=== PATIENT | female | born 1990 | race African-American/Black ===

== ENCOUNTER 2019-01-16 22:06 | Emergency (ER) | payer OTHER, SELFPAY ==
[2019-01-16 22:32] LABS: WBC Urine None Seen (0-5/HPF)
[2019-01-16 22:44] LABS: Bacteria Urine Occasional (0-1); Culture Indicated Urine Cult Not Indicated; RBC Urine 0-1/HPF (0-5/HPF); Squamous Epithelial Cell Urine 1-5 /HPF (0-5/HPF)
--- NOTE | 2019-01-16 22:47 | ED.ABDPAIN ---
HPI - Abdominal Pain General Stated Complaint: ABD PAIN, HX OF CYST Time Seen by Provider: 01/16/19 22:07 Source: patient Mode of arrival: ambulatory Limitations: no limitations History of Present Illness HPI narrative: 28-year-old female nonsmoker, otherwise healthy presents with a chief complaint of persistent lower pelvic pressure for many weeks if not months. She states it is worse when she moves and improves with rest. She denies any vaginal bleeding or discharge. She denies any dysuria, frequency or urgency. She denies fever or chills nor nausea, vomiting or diarrhea. Patient was seen and evaluated at the [facility] clinic and had an ultrasound yesterday, she was called today and told she has a left-sided ovarian cyst and her IUD is in appropriate placement. Patient called the nursing hotline to see if she can take anything for pain in after a brief conversation it was encouraged that she present to the emergency department MD complaint: abdominal pain Onset (ago): week(s) Pain Consistency: constant Location: LLQ Severity: mild Quality: aching Relieving factors: rest Exacerbating factors: movement Associated symptoms: denies other symptoms Related Data Previous Rx's Medication Instructions Recorded ketorolac 10 mg PO Q6H PRN #14 tab 01/16/19 Review of Systems Constitutional Denies chills, Denies fever(s), Denies lethargy and Denies weakness Eyes Denies change in vision, Denies eye discharge, Denies irritation and Denies loss of vision ENT Ears, Nose, Mouth, and Throat: Denies change in voice, Denies neck pain and Denies sore throat Cardiovascular Denies chest pain, Denies irregular heart rhythm, Denies lightheadedness, Denies palpitations, Denies dyspnea, Denies dyspnea on exertion and Denies orthopnea Respiratory Denies cough, Denies dyspnea, Denies dyspnea on exertion and Denies wheezing Gastrointestinal Gastrointestinal: Denies abdominal pain, Denies change in bowel habits, Denies diarrhea, Denies nausea and Denies vomiting Comments: Pelvic pain Genitourinary Denies hematuria, Denies flank pain, Denies urinary incontinence and Denies urinary urgency Musculoskeletal Denies neck pain Integumentary/Breasts Denies pruritus, Denies erythema, Denies rash and Denies wounds Neurologic Denies confusion, Denies loss of vision and Denies weakness Psychiatric Denies anxiety, Denies confusion, Denies depression, Denies homicidal ideation and Denies suicidal ideation Endocrine Denies palpitations Hematologic/Lymphatic Denies easy bruising Allergic/Immunologic Denies wheezing Exam Narrative Exam Narrative: GENERAL: 28-year-old female resting comfortably and in no apparent distress HEAD: Atraumatic. Normocephalic. No temporal or scalp tenderness. EYES: Pupils equal round and reactive. Extraocular motions intact. ENT: Nose without bleeding, purulent drainage or septal hematoma. NECK: Trachea midline. CARDIOVASCULAR: Regular rate and rhythm without murmurs, gallops, or rubs. RESPIRATORY: Clear to auscultation. Breath sounds equal bilaterally. No wheezes, rales, or rhonchi. GASTROINTESTINAL: Abdomen soft, non-tender, nondistended. EXTREMITIES: No clubbing, cyanosis, or edema. No joint tenderness, effusion, or edema noted. BACK: Nontender without deformity or crepitance. No flank tenderness. NEURO: AOx3. SKIN: No rash or erythema. Course Orders Ordered: ED Orders 01/16/19 22:31 Urine Microscopic Stat Discontinued Medications Ketorolac Tromethamine (Toradol) 60 mg IM NOW ONE Stop: 01/16/19 22:55 Last Admin: 01/16/19 23:08 Dose: 60 mg MDM - Abdominal Pain Lab Data Lab Results 01/16/19 Range/Units 22:31 Urine RBC 0-1/hpf (0-5/HPF) Urine WBC None seen (0-5/HPF) Ur Squamous Epith Cells 1-5 /hpf (0-5/HPF) Urine Bacteria Occasional (0-1) (None) Ur Culture Indicated? Cult not indicated Point of care testing: Urine Dip Bedside Urine Glucose Negative Bedside Urine Bilirubin - Negative Bedside Urine Ketone - Negative Urine Specific [place] 1.025 Bedside Urine Occult Blood +++ Bedside Urine pH 6.0 Bedside Urine Protein - Negative Bedside Urine Urobilinogen +/- 1mg Bedside Urine Nitrite - Negative Bedside Urine Leukocytes - Negative Esterase MDM Narrative Medical decision making narrative: A 28-year-old female is otherwise healthy. She has had chronic lower pelvic discomfort for quite some time, she states today's symptoms are nothing new but are just not going away. Her exam is very reassuring. Urine is clean. Patient had ultrasound yesterday showing appropriate placement of IUD and ovarian cyst. We had a lengthy discussion about treatment with anti-inflammatories versus a more in-depth evaluation. Patient understands the risks and benefits of this approach. We had extensive sure decision making and patient would prefer to avoid extensive laboratory and imaging at this point time, understanding that not doing so runs the risk of missing a diagnosis. She has been given return precautions and verbalizes her understanding. Discharge Plan Departure Patient Disposition: Home Clinical Impression: Ovarian cyst Qualifiers: Laterality: left Qualified Code(s): N83.202 - Unspecified ovarian cyst, left side Discharge Date/Time: 01/16/19 23:13 Interventions: ED Discharge Assessment Last Done: 01/16/19 23:12 Instructions: DI for Ovarian Cyst Activity Restrictions/Additional Instructions: *You have been diagnosed with [acute on chronic left lower quadrant pain, most likely ovarian cyst] *What to do: *Take medications as directed *Follow up with your primary care provider in 2-3 days, call for an appointment. Let them know you were seen in the Emergency Department and that we ask that you be seen in follow up *Return to ER if you should have any new, worsening or concerning symptoms, such as [worsening pain, vaginal bleeding, fever over 101 F, or other bothersome symptoms] Prescriptions: New ketorolac 10 mg tablet 10 mg PO Q6H PRN (Reason: pain) Qty: 14 RF: 0 Referrals: [facility] [Outside]
[2019-01-16] MEDS: KETOROLAC 60 MG/2 ML VIAL IM (23:08)
== END 2019-01-16 23:13 | disposition home or self-care (01) ==
PROVIDERS: Emergency Provider Emergency Medicine
DX: N83.202 Unspecified ovarian cyst, left side (principal)
CPT/HCPCS: 81003; 81015; 96372; 99281; 99283; J1885

== ENCOUNTER 2020-01-25 14:51 | Emergency (ER) | payer OTHER, SELFPAY ==
[2020-01-25 14:59] VITALS: BP 128/84; PULSE 97; RESP 14; TEMP 38.3; O2SAT 99; BMI 21.1
[2020-01-25 15:08] VITALS: TEMP 38.3
[2020-01-25] MEDS: ACETAMINOPHEN 325 MG TABLET 975 MG PO (15:08)
--- NOTE | 2020-01-25 15:59 | ED.FEVER ---
HPI - Fever <MAXIMILIANO Oswald - Last Filed: 01/25/20 17:12> General Chief Complaint: Fever Stated Complaint: fevers,body aches, headache x2 days Time Seen by Provider: 01/25/20 15:13 Source: patient Mode of arrival: Ambulatory Limitations: no limitations History of Present Illness HPI Narrative: The patient is a 29-year-old female current vaper who presents with a chief complaint of fevers up to 101, 102 body aches and headache for 2 days. She denies any ear pain, sore throat, abdominal pain nausea vomiting diarrhea, any cough or congestion. She has not had any Tylenol or Motrin prior to arrival since 01:30am this morning. She denies any dysuria urgency or frequency. She states overall she feels pretty well. She was given Tylenol in triage, and she states that helped her headache. She denies any neck pain or stiffness. She denies any exposure to parker virus that she knows of. She denies any chest pain or shortness of breath. She denies any cough or congestion. Related Data Previous Rx's Medication Instructions Recorded diphenhydramine HCl [Benadryl 25 mg PO Q6H PRN #10 tab 01/27/20 Allergy] metoclopramide HCl [Reglan] 10 mg PO Q6H PRN #10 tab MDD 01/27/20 headache, nausea and vomiting Allergies Allergy/AdvReac Type Severity Reaction Status Date / Time No Known Drug Allergies Allergy Verified 01/25/20 15:03 Review of Systems <MAXIMILIANO Oswald - Last Filed: 01/25/20 17:12> Review of Systems Narrative: GENERAL: See HPI HEENT: Denies sinus pain, ear pain, sore throat, difficulty swallowing, dizziness. RESPIRATORY: Denies dyspnea, cough, wheezing, hemoptysis, sputum. CARDIOVASCULAR: Denies chest pain, palpitations, orthopnea, edema, GASTROINTESTINAL: Denies nausea, vomiting, abdominal pain, diarrhea, constipation, melena. : Denies dysuria, frequency, incontinence, hematuria, urinary retention. MUSCULOSKELETAL: denies weakness, joint pain, or bony pain SKIN: Denies rash, skin lesions, or other NEUROLOGIC: See HPI PSYCHIATRIC: No concerning psychosocial issues. 12 point review of systems is negative except for those stated above Patient History <TANVIR OswaldBC - Last Filed: 01/25/20 17:12> Medical History IUD (intrauterine device) in place (Acute) Social History Smoking Status: Never smoker Smoking Status: Never smoker tobacco type: vaping alcohol intake frequency: 0-2 drinks per day Substance Use Type: does not use Exam <Alice Williamson OLAMIDE-SANJU - Last Filed: 01/25/20 17:12> Narrative Exam Narrative: GENERAL: This is a well-nourished, well-developed patient, no acute distress HEAD: Atraumatic. Normocephalic. No temporal or scalp tenderness. EYES: Pupils equal round and reactive. Extraocular motions intact. No scleral icterus. No injection or drainage. ENT: Nose without bleeding, purulent drainage or septal hematoma. Throat without erythema, tonsillar hypertrophy or exudate. Uvula midline. Airway patent. NECK: Trachea midline. No JVD or lymphadenopathy. Supple, nontender, no meningeal signs. CARDIOVASCULAR: Regular rate and rhythm RESPIRATORY: Clear to auscultation. Breath sounds equal bilaterally. No wheezes, rales, or rhonchi. No cough. No increased respiratory effort. No accessory muscle use GASTROINTESTINAL: Abdomen soft, non-tender, nondistended. No hepato-splenomegaly, or palpable masses. No guarding. EXTREMITIES: No clubbing, cyanosis, or edema. No joint tenderness, effusion, or edema noted. BACK: Nontender without deformity or crepitance. No flank tenderness. NEURO: AOx3. SKIN: No rash or erythema on visible skin Initial Vital Signs Initial Vital Signs: Vital Signs Temperature 100.9 F H 01/25/20 14:59 Pulse Rate 97 H 01/25/20 14:59 Respiratory Rate 14 01/25/20 14:59 Blood Pressure 128/84 01/25/20 14:59 Pulse Oximetry 99 01/25/20 14:59 <Page Chuo DO - Last Filed: 01/30/20 07:28> Initial Vital Signs Initial Vital Signs: Vital Signs Temperature 100.9 F H 01/25/20 14:59 Pulse Rate 97 H 01/25/20 14:59 Respiratory Rate 14 01/25/20 14:59 Blood Pressure 128/84 01/25/20 14:59 Pulse Oximetry 99 01/25/20 14:59 Scores <Alice MAXIMILIANO Williamson - Last Filed: 01/25/20 17:12> GCS Ricky coma scale eye opening: Spontaneous Ricky coma scale verbal response: Orientated Ricky coma scale motor response: Obey commands Ricky coma scale total score: 15 Course <MAXIMILIANO Oswald - Last Filed: 01/25/20 17:12> Orders Ordered: Discontinued Medications Acetaminophen (Tylenol) 975 mg PO NOW ONE Stop: 01/25/20 15:05 Last Admin: 01/25/20 15:08 Dose: 975 mg Documented by: GALINA Ketorolac Tromethamine (Toradol) 30 mg IM NOW ONE Stop: 01/25/20 15:42 Last Admin: 01/25/20 16:26 Dose: 30 mg Documented by: OFELIA Vital Signs Vital signs: Vital Signs - 8 hr 01/25/20 14:59 01/25/20 15:08 Temperature 100.9 F H 100.9 F H Pulse Rate 97 H Respiratory Rate 14 Blood Pressure 128/84 Pulse Oximetry 99 <Page Chou DO - Last Filed: 01/30/20 07:28> Orders Ordered: Discontinued Medications Acetaminophen (Tylenol) 975 mg PO NOW ONE Stop: 01/25/20 15:05 Last Admin: 01/25/20 15:08 Dose: 975 mg Documented by: GALINA Ketorolac Tromethamine (Toradol) 30 mg IM NOW ONE Stop: 01/25/20 15:42 Last Admin: 01/25/20 16:26 Dose: 30 mg Documented by: OFELIA Vital Signs Vital signs: Vital Signs - 8 hr 01/25/20 14:59 01/25/20 15:08 Temperature 100.9 F H 100.9 F H Pulse Rate 97 H Respiratory Rate 14 Blood Pressure 128/84 Pulse Oximetry 99 MDM - Fever <MAXIMILIANO Oswald - Last Filed: 01/25/20 17:12> Lab Data Labs: Lab Results 01/25/20 01/25/20 Range/Units 15:12 16:10 Urine RBC 1-5/hpf (0-5/HPF) Urine WBC 1-5/hpf (0-5/HPF) Ur Squamous Epith Cells 5-10 /hpf H (0-5/HPF) Amorphous Sediment 1+ Urine Bacteria Occasional (0-1) (None) Urine Mucus 1+ H (Negative) Ur Culture Indicated? Cult not indicated COVID-19 PCR Not detected (Not Detected) Point of Care Testing Test Results Negative Urine Dip Bedside Urine Glucose Negative Bedside Urine Bilirubin - Negative Bedside Urine Ketone - Negative Urine Specific [place] 1.020 Bedside Urine Occult Blood + Bedside Urine pH 6.0 Bedside Urine Protein - Negative Bedside Urine Urobilinogen +/- 1mg Bedside Urine Nitrite - Negative Bedside Urine Leukocytes - Negative Esterase MDM Narrative Medical decision making narrative: The patient is a 29-year-old female who presents with a chief complaint of fevers and headache for 2 days. She has no signs of bacterial infection on evaluation, has an overall benign exam. Her headache feels much improved after the above-stated therapies. She has no meningeal signs, is alert oriented interactive and appropriate. She presents primarily for coronavirus testing as per recommendations. I discussed at length that we will call her with her results are positive or negative. Urinalysis is clear, lung sounds are clear. Discussed at length return precautions for any acute concerns including abdominal pain with fever, shortness of breath etcetera. Patient has been hemodynamically stable, alert oriented and interactive and appropriate throughout her stay in the emergency department. Patient has no questions or concerns upon discharge and states understanding of return precautions as well as follow-up care. <Page Chou, DO - Last Filed: 01/30/20 07:28> Lab Data Labs: Lab Results 01/25/20 01/25/20 Range/Units 15:12 16:10 Urine RBC 1-5/hpf (0-5/HPF) Urine WBC 1-5/hpf (0-5/HPF) Ur Squamous Epith Cells 5-10 /hpf H (0-5/HPF) Amorphous Sediment 1+ Urine Bacteria Occasional (0-1) (None) Urine Mucus 1+ H (Negative) Ur Culture Indicated? Cult not indicated COVID-19 PCR Not detected (Not Detected) Point of Care Testing Test Results Negative Urine Dip Bedside Urine Glucose Negative Bedside Urine Bilirubin - Negative Bedside Urine Ketone - Negative Urine Specific [place] 1.020 Bedside Urine Occult Blood + Bedside Urine pH 6.0 Bedside Urine Protein - Negative Bedside Urine Urobilinogen +/- 1mg Bedside Urine Nitrite - Negative Bedside Urine Leukocytes - Negative Esterase Discharge Plan Departure Patient Disposition: Home Clinical Impression: Fever Qualifiers: Fever type: unspecified Qualified Code(s): R50.9 - Fever, unspecified Headache Qualifiers: Headache type: unspecified Headache chronicity pattern: unspecified pattern Intractability: not intractable Qualified Code(s): R51 - Headache Discharge Date/Time: 01/25/20 17:25 Instructions: DI for Fever (Symptom) -- Adult, Coronavirus Disease 2019 Activity Restrictions/Additional Instructions: Thank you for trusting us with your care today Please continue to use Tylenol, Motrin etcetera as needed for headache and/or fever Please follow-up with primary care provider next few days. Your coronavirus test should result in the next 2 days and we will call you if it is positive or negative. However we have been having some delays with test results due to the amount of test being done and now we are having test take about a week at times. As discussed, please act as though you are sick and self quarantine at home until results come in Please come back to emergency department for any acute concerns such as shortness of breath, abdominal pain with fever etcetera Prescriptions: No Action metoclopramide HCl [Reglan] 10 mg tablet 10 mg PO Q6H MDD headache, nausea and vomiting PRN (Reason: headache, nausea and vomiting) Qty: 10 RF: 0 diphenhydramine HCl [Benadryl Allergy] 25 mg tablet 25 mg PO Q6H PRN (Reason: nausea and vomiting) Qty: 10 RF: 0 Referrals: [facility] [Outside] <Page Chou DO - Last Filed: 01/30/20 07:28> Cosj[facility] ED Attending Purvi Attestation: I was immediately available in the department for consultation. Documentation has been reviewed. I agree with assessment and plan.
[2020-01-25] MEDS: KETOROLAC 60 MG/2 ML VIAL 30 MG IM (16:26)
[2020-01-25 16:40] LABS: RBC Urine 1-5/HPF (0-5/HPF); WBC Urine 1-5/HPF (0-5/HPF)
[2020-01-25 16:41] LABS: Amorphous Sediment Urine 1+; Bacteria Urine Occasional (0-1); Culture Indicated Urine Cult Not Indicated; Mucus Urine 1+ (Negative); Squamous Epithelial Cell Urine 5-10 /HPF (0-5/HPF)
[2020-01-25 17:21] VITALS: BP 110/78; PULSE 82; RESP 15; O2SAT 99
[2020-01-27 04:11] LABS: COVID19 Sendout Not Detected (Not Detected)
== END 2020-01-25 17:25 | disposition home or self-care (01) ==
PROVIDERS: Emergency Medicine; Emergency Provider Nurse Practitioner Family
DX: R50.9 Fever, unspecified (principal); R51 Headache
CPT/HCPCS: 81003; 81015; 81025; 87635; 96372; 99283; 99284; J1885

== ENCOUNTER 2020-01-27 09:14 | Emergency (ER) | payer OTHER, SELFPAY ==
[2020-01-27] VITALS (10 sets, daily range): BP systolic 112–132; BP diastolic 60–79; PULSE 67–98; RESP 20; TEMP 38.2; O2SAT 98–100; BMI 21.1
[2020-01-27 09:37] LABS: Bacteria Urine None Seen
[2020-01-27 09:44] LABS: Culture Indicated Urine Cult Not Indicated; RBC Urine 5-10/HPF (0-5/HPF); Squamous Epithelial Cell Urine 5-10 /HPF (0-5/HPF); WBC Urine 1-5/HPF (0-5/HPF)
[2020-01-27 09:58] LABS: Add Manual Diff / Slide Review NO; Basophils Absolute Auto 100 /uL (0-100); Basophils Percent Auto 1.2 % (0-2); Eosinophils Absolute Auto 100 /uL (0-450); Eosinophils Percent Auto 1.4 % (2-4); Hematocrit 41.5 % (36-46); Hemoglobin 14.3 g/dL (12.0-16.0); Lymphocytes Absolute Auto 2800 /uL (1100-4500); Lymphocytes Percent Auto 47.6 % (25-40); Mean Corpuscular HGB Conc 34.5 % (30-36); Mean Corpuscular Hemoglobin 33.1 PG (26-34); Mean Corpuscular Volume 95.9 fL (80-100); Monocytes Absolute Auto 300 /uL (0-900); Monocytes Percent Auto 4.9 % (3-14); Neutrophils Absolute Auto 2600 /uL (1500-7000); Neutrophils Percent Auto 44.9 % (50-75); Platelet Count 188 X10^3/uL (150-400); Red Blood Cell Count 4.33 X10^6/uL (4.0-5.2); Red Cell Distribution Width 12.8 % (11.6-14.8); White Blood Cell Count 5.8 X10^3/uL (4.5-11.0)
[2020-01-27 10:00] LABS: Pregnancy Test Urine Negative (Negative)
[2020-01-27 10:03] LABS: Lactate (Lactic Acid) 1.5 mmol/L (0.7-2.1)
[2020-01-27 10:06] LABS: Alanine Aminotransferase 65 IU/L (<35); Albumin 4.1 g/dL (3.5-5.0); Albumin Globulin Ratio 1.4 (1.0-2.8); Alkaline Phosphatase 69 U/L (38-126); Aspartate Aminotransferase 93 IU/L (14-36); BUN Creatinine Ratio 8.2 (6-22); Bilirubin Total 0.6 mg/dL (0.2-1.3); Blood Urea Nitrogen 7 mg/dL (7-17); Calcium 9.2 mg/dL (8.4-10.2); Carbon Dioxide 25 mmol/L (22-32); Chloride 103 mmol/L (98-107); Estimated Glomerular Filt Rate > 60.0 mL/min (>60); Globulin 2.9 g/dL (1.7-4.1); Glucose 128 mg/dL (70-100); HEMOLYSIS 19 (0-50); Lactate Dehydrogenase 876 U/L (313-618); Potassium 3.6 mmol/L (3.4-5.1); Sodium 134 mmol/L (137-145)
--- NOTE | 2020-01-27 10:06 | ED_ITS ---
HPI - Fever General Chief Complaint: Fever Stated Complaint: fever, headache x 3 Time Seen by Provider: 01/27/20 09:42 Source: patient Mode of arrival: Ambulatory Limitations: no limitations History of Present Illness HPI Narrative: CC: Persistent fever for 3 days associated with a headache HPI: Patient is a 29-year-old female who is currently in the [address] who presents to the emergency department with persistent headache that is bifrontal and is associated with a fever. Her temperature at the highest that she measured was 101.2. Her headache is a throbbing dull achy discomfort that is 7/10 in intensity. She denies any fall or injury. She she normally does not have headaches or migraines. She denies any nasal congestion sore throat cough dysphagia. She was seen in the emergency department on January 24 and was tested for [place] id which today resulted as being negative. She denies a history of migraine headaches hepatitis, TB or HIV. She has had no hypertension or diabetes mellitus as well as any heart murmur heart disease or asthma. She has had intermittent fever with chills and sweats associated with the headache. She has had no numbness tingling paresthesias anesthesia is paresis or paralysis. She denies any loss of vision double vision nasal drainage sore throat chest pain cough shortness of breath palpitations or dizziness. She has had no abdominal pain nausea vomiting diarrhea melena hematochezia. She denies any urinary symptoms dysuria urinary frequency urgency. She denies being she does not know when her last menstrual period has been because she has the Mirena IUD for the last 3 years. Related Data Previous Rx's Medication Instructions Recorded diphenhydramine HCl [Benadryl 25 mg PO Q6H PRN #10 tab 01/27/20 Allergy] metoclopramide HCl [Reglan] 10 mg PO Q6H PRN #10 tab MDD 01/27/20 headache, nausea and vomiting Allergies Allergy/AdvReac Type Severity Reaction Status Date / Time No Known Drug Allergies Allergy Verified 01/25/20 15:03 Review of Systems Review of Systems Narrative: Her review of systems were all negative except for those mentioned in the history of present illness. Patient History Medical History IUD (intrauterine device) in place (Acute) Social History Smoking Status: Never smoker Smoking Status: Never smoker tobacco type: vaping alcohol intake frequency: holidays/special occasions only Substance Use Type: does not use Exam Narrative Exam Narrative: PHYSICAL EXAM: CONSTITUTIONAL: Awake, Alert, Oriented, Coherent, Cooperative in NAD. Does not appear toxic or ill. At the time that I am seeing the patient her blood pressure is 132/79 heart rate 98 respiratory rate 20 temperature 100.7? O2 saturation is 98% on room air. She does not appear to be in any acute distress. HEAD: AT/NC, no tenderness to palpation over the frontal or maxillary sinuses. No tenderness over the mastoid processes EENT: PERRL, FROM of eyes, no discharge, no nystagmus, conjunctiva without pallor, no icterus NOSE:No epistaxis or nasal drainage MOUTH:Oral mucosa is moist and pink, posterior pharynx is without erythema or exudate. NECK: Supple, no obvious JVD, Trachea is midline without stridor, no palpable LN. SPINE: Palpation of the cervical, Thoracic, Lumbar or Sacral spine reveals no gross deformity or tenderness. No CVA tenderness. She has no nuchal rigidity with full range of motion of her neck. Are no signs of meningismus. THORAX: No deformity, retractions, chest wall tenderness. LUNGS: Clear, symmetrical breath sounds without respiratory distress. HEART: Normal heart tones, regular rhythm and rate without murmur. ABDOMEN: Soft, non-tender, normal bowel sounds, no guarding, rebound, rigidity or palpable mass. EXTREMITIES: No edema, deformity, tenderness or cyanosis. SKIN: No rash, bruising, petechiae or purpura. NEURO: Awake, alert, oriented, conversive, cranial nerves II-XII are symmetrical , moves all 4 extremities and is ambulatory. MENTAL HEALTH: Does not appear anxious or depressed. Initial Vital Signs Initial Vital Signs: Vital Signs Temperature 100.7 F H 01/27/20 09:21 Pulse Rate 98 H 01/27/20 09:21 Respiratory Rate 20 01/27/20 09:21 Blood Pressure 132/79 01/27/20 09:21 Pulse Oximetry 98 01/27/20 09:21 Course Course Course Narrative: 1006: COVID-19 test was negative obtained 2 days ago here at [facility]. The patient states that her headache is bifrontal and is a dull achy discomfort that is 7/10 in intensity. The patient has been administered Toradol 30 mg IV Reglan 10 mg IV and Benadryl 25 mg IV push for her pain and discomfort. 1137: The patient's urinalysis is not a clean-catch urine. She has 5-10 red blood cells per high-power field in 5-10 squamous epithelial cells per high- powered field 1-5 white blood cells per high-power field not indicated for culture. Orders Ordered: Discontinued Medications Diphenhydramine HCl (Benadryl) 25 mg IV NOW ONE Stop: 01/27/20 10:08 Last Admin: 01/27/20 10:19 Dose: 25 mg Documented by: OFELIA Sodium Chloride (Normal Saline 0.9%) 1,000 mls @ 1,000 mls/hr IV BOLUS PRN PRN Reason: Fluid replacement Last Infusion: 01/27/20 11:32 Dose: 0 mls/hr Documented by: Admin: 01/27/20 10:19 Dose: 1,000 mls/hr Documented by: OFELIA Ketorolac Tromethamine (Toradol) 30 mg IV NOW ONE Stop: 01/27/20 10:08 Last Admin: 01/27/20 10:20 Dose: 30 mg Documented by: OFELIA Metoclopramide HCl (Reglan) 10 mg IV NOW ONE Stop: 01/27/20 10:08 Last Admin: 01/27/20 10:19 Dose: 10 mg Documented by: OFELIA Vital Signs Vital signs: Vital Signs - 8 hr 01/27/20 12:00 Pulse Rate 67 Pulse Oximetry 99 MDM - Fever Lab Data Result diagrams: 01/27/20 09:38 01/27/20 09:38 Labs: Lab Results 01/27/20 01/27/20 01/27/20 Range/Units 09:24 09:38 09:38 WBC 5.8 (4.5-11.0) X10^3/uL RBC 4.33 (4.0-5.2) X10^6/uL Hgb 14.3 (12.0-16.0) g/dL Hct 41.5 (36-46) % MCV 95.9 (80-100) fL MCH 33.1 (26-34) PG MCHC 34.5 (30-36) % RDW 12.8 (11.6-14.8) % Plt Count 188 (150-400) X10^3/uL Neut % (Auto) 44.9 L (50-75) % Lymph % (Auto) 47.6 H (25-40) % [place] % (Auto) 4.9 (3-14) % Eos % (Auto) 1.4 L (2-4) % Baso % (Auto) 1.2 (0-2) % Neut # (Auto) 2600 (6952-5889) /uL Lymph # (Auto) 2800 (8857-5667) /uL Hoke # (Auto) 300 (0-900) /uL Eos # (Auto) 100 (0-450) /uL Baso # (Auto) 100 (0-100) /uL Sodium (137-145) mmol/L Potassium (3.4-5.1) mmol/L Chloride (98-107) mmol/L Carbon Dioxide (22-32) mmol/L BUN (7-17) mg/dL Creatinine (0.52-1.04) mg/dL Estimated GFR (>60) mL/min BUN/Creatinine Ratio (6-22) Glucose (70-100) mg/dL Lactate (0.7-2.1) mmol/L Calcium (8.4-10.2) mg/dL Total Bilirubin (0.2-1.3) mg/dL AST (14-36) IU/L ALT (<35) IU/L Alkaline Phosphatase (38-126) U/L Lactate Dehydrogenase (313-618) U/L C-Reactive Protein (<1.0) mg/dL Total Protein (6.3-8.2) g/dL Albumin (3.5-5.0) g/dL Globulin (1.7-4.1) g/dL Albumin/Globulin Ratio (1.0-2.8) Procalcitonin 0.19 (<0.5) ng/mL Urine RBC 5-10/hpf H (0-5/HPF) Urine WBC 1-5/hpf (0-5/HPF) Ur Squamous Epith Cells 5-10 /hpf H (0-5/HPF) Urine Bacteria None seen (None) Ur Culture Indicated? Cult not indicated Urine Test (Negative) 01/27/20 01/27/20 01/27/20 Range/Units 09:38 09:38 09:38 WBC (4.5-11.0) X10^3/uL RBC (4.0-5.2) X10^6/uL Hgb (12.0-16.0) g/dL Hct (36-46) % MCV (80-100) fL MCH (26-34) PG MCHC (30-36) % RDW (11.6-14.8) % Plt Count (150-400) X10^3/uL Neut % (Auto) (50-75) % Lymph % (Auto) (25-40) % [place] % (Auto) (3-14) % Eos % (Auto) (2-4) % Baso % (Auto) (0-2) % Neut # (Auto) (8402-6542) /uL Lymph # (Auto) (3673-2460) /uL Hoke # (Auto) (0-900) /uL Eos # (Auto) (0-450) /uL Baso # (Auto) (0-100) /uL Sodium 134 L (137-145) mmol/L Potassium 3.6 (3.4-5.1) mmol/L Chloride 103 (98-107) mmol/L Carbon Dioxide 25 (22-32) mmol/L BUN 7 (7-17) mg/dL Creatinine 0.85 (0.52-1.04) mg/dL Estimated GFR > 60.0 (>60) mL/min BUN/Creatinine Ratio 8.2 (6-22) Glucose 128 H (70-100) mg/dL Lactate 1.5 (0.7-2.1) mmol/L Calcium 9.2 (8.4-10.2) mg/dL Total Bilirubin 0.6 (0.2-1.3) mg/dL AST 93 H (14-36) IU/L ALT 65 H (<35) IU/L Alkaline Phosphatase 69 (38-126) U/L Lactate Dehydrogenase 876 H (313-618) U/L C-Reactive Protein (<1.0) mg/dL Total Protein 7.0 (6.3-8.2) g/dL Albumin 4.1 (3.5-5.0) g/dL Globulin 2.9 (1.7-4.1) g/dL Albumin/Globulin Ratio 1.4 (1.0-2.8) Procalcitonin (<0.5) ng/mL Urine RBC (0-5/HPF) Urine WBC (0-5/HPF) Ur Squamous Epith Cells (0-5/HPF) Urine Bacteria (None) Ur Culture Indicated? Urine Test Negative (Negative) 01/27/20 Range/Units 09:38 WBC (4.5-11.0) X10^3/uL RBC (4.0-5.2) X10^6/uL Hgb (12.0-16.0) g/dL Hct (36-46) % MCV (80-100) fL MCH (26-34) PG MCHC (30-36) % RDW (11.6-14.8) % Plt Count (150-400) X10^3/uL Neut % (Auto) (50-75) % Lymph % (Auto) (25-40) % [place] % (Auto) (3-14) % Eos % (Auto) (2-4) % Baso % (Auto) (0-2) % Neut # (Auto) (3475-1440) /uL Lymph # (Auto) (5346-7412) /uL [place] # (Auto) (0-900) /uL Eos # (Auto) (0-450) /uL Baso # (Auto) (0-100) /uL Sodium (137-145) mmol/L Potassium (3.4-5.1) mmol/L Chloride (98-107) mmol/L Carbon Dioxide (22-32) mmol/L BUN (7-17) mg/dL Creatinine (0.52-1.04) mg/dL Estimated GFR (>60) mL/min BUN/Creatinine Ratio (6-22) Glucose (70-100) mg/dL Lactate (0.7-2.1) mmol/L Calcium (8.4-10.2) mg/dL Total Bilirubin (0.2-1.3) mg/dL AST (14-36) IU/L ALT (<35) IU/L Alkaline Phosphatase (38-126) U/L Lactate Dehydrogenase (313-618) U/L C-Reactive Protein 0.8 (<1.0) mg/dL Total Protein (6.3-8.2) g/dL Albumin (3.5-5.0) g/dL Globulin (1.7-4.1) g/dL Albumin/Globulin Ratio (1.0-2.8) Procalcitonin (<0.5) ng/mL Urine RBC (0-5/HPF) Urine WBC (0-5/HPF) Ur Squamous Epith Cells (0-5/HPF) Urine Bacteria (None) Ur Culture Indicated? Urine Test (Negative) Point of Care Testing Test Results Negative Urine Dip Bedside Urine Glucose Negative Bedside Urine Bilirubin - Negative Bedside Urine Ketone - Negative Urine Specific [place] 1.010 Bedside Urine Occult Blood +/- Bedside Urine pH 8.0 Bedside Urine Protein +/- 15 Bedside Urine Urobilinogen +/- 1mg Bedside Urine Nitrite - Negative Bedside Urine Leukocytes - Negative Esterase Discharge Plan Departure Patient Disposition: Home Clinical Impression: Fever Qualifiers: Fever type: unspecified Qualified Code(s): R50.9 - Fever, unspecified Headache Qualifiers: Headache type: unspecified Headache chronicity pattern: unspecified pattern Intractability: not intractable Qualified Code(s): R51 - Headache Discharge Date/Time: 01/27/20 12:13 Instructions: DI for Viral Syndrome, DI for Fever (Symptom) -- Adult Activity Restrictions/Additional Instructions: 1. Follow-up with your primary care physician to be re-evaluated in 48-72 hours. 2. Your Covid-19t test obtained 2 days ago was negative. 3. The rest of your chemistries are negative. Your urinalysis does not revealed that you have a urinary tract infection. Blood cultures were obtained but it will take 24-48 hours to get the results back up from those. 4. For your persistent headache and temperature you can take Tylenol 500 mg every 4 hours or you can take 3, 200 mg ibuprofen tablets, every 6 hours. 5. For the headache you can also take Reglan 10 mg 3 times a day in conjunction with Benadryl 25 mg orally. 6. If you develop worsening fever worsening headache persistent cough with chest pain, dizziness lightheadedness you need to return to the emergency department. It appears that you have a viral upper respiratory infection causing your fever. 7. To keep yourself well hydrated you need to drink between 2 and 4 L of fluid per day. Prescriptions: New metoclopramide HCl [Reglan] 10 mg tablet 10 mg PO Q6H MDD headache, nausea and vomiting PRN (Reason: headache, nausea and vomiting) Qty: 10 RF: 0 diphenhydramine HCl [Benadryl Allergy] 25 mg tablet 25 mg PO Q6H PRN (Reason: nausea and vomiting) Qty: 10 RF: 0
[2020-01-27 10:07] LABS: C-Reactive Protein Quant 0.8 mg/dL (<1.0)
[2020-01-27] MEDS: METOCLOPRAMIDE 10 MG/2 ML INJ IV (10:19)
[2020-01-27] MEDS: diphenhydrAMINE 50 MG/ML VIAL 25 MG IV (10:19)
[2020-01-27] MEDS: SODIUM CHLORIDE 0.9% 1,000 ML 1000 ML IV (10:19)
[2020-01-27] MEDS: KETOROLAC 60 MG/2 ML VIAL 30 MG IV (10:20)
[2020-01-27 10:21] LABS: Procalcitonin 0.19 ng/mL (<0.5)
== END 2020-01-27 12:13 | disposition home or self-care (01) ==
PROVIDERS: Emergency Provider Emergency Medicine
DX: R50.9 Fever, unspecified (principal); R51 Headache; Z97.5 Presence of (intrauterine) contraceptive device
CPT/HCPCS: 36415; 80053; 81003; 81015; 81025; 83605; 83615; 84145; 85025; 86140; 87040; 96361; 96374; 96375; 99284; J1200; J1885; J2765